=== PATIENT | female | born 1975 | race Caucasian/White ===

== ENCOUNTER 2021-08-05 19:44 | Emergency (ER) | payer OTHER ==
[~2021-08-05] VITALS: Ht 162.6 cm; Wt 96.7 kg
--- NOTE | 2021-08-05 19:58 | PHYS DOC ---
Adult General Chief Complaint Chief Complaint: EYE PROBLEMS HPI HPI Patient is a 45-year-old female patient presented to the ED today with left eye injury, patient states she was playing with her dog and it accidentally scratched her left eye. Patient states the dog is up-to-date with his shots. Denies vision loss, reports blurry vision. (TASNEEM HERNANDEZ APRN) Review of Systems Review of Systems Constitutional: Denies fever or chills [] Eyes: Reports left eye injury, blurry vision, denies vision loss Musculoskeletal: Denies back pain or joint pain [] Integument: Denies rash or skin lesions [] Neurologic: Denies headache, focal weakness or sensory changes [] All other systems were reviewed and found to be within normal limits, except as documented in this note. (TASNEEM HERNANDEZ APRN) Physical Exam Physical Exam Constitutional: Well developed, well nourished, no acute distress, non-toxic appearance. [] HENT: Normocephalic, atraumatic, bilateral external ears normal, oropharynx moist, no oral exudates, nose normal. [] Eyes: PERRLA, EOMI, conjunctiva normal, no discharge. [] Left lower eyelid lateral aspect with a tiny superficial laceration roughly 0.3 cm. Left eye exam under Santos lamp A tiny corneal abrasion noted at approximately 2100 position Left eye was numbed with tetracaine and stained with fluorescein. Back: No tenderness, no CVA tenderness. [] Extremities: No tenderness, no cyanosis, no clubbing, ROM intact, no edema. [] Neurologic: Alert and oriented X 3, normal motor function, normal sensory function, no focal deficits noted. [] Psychologic: Affect normal, judgement normal, mood normal. [] (TASNEEM HERNANDEZ PATENT LITIGATION ASSOCIATE) EKG EKG [] (TASNEEM HERNANDEZ APRN) Radiology/Procedures Radiology/Procedures [] (TASNEEM HERNANDEZ APRN) Heart Score C/O Chest Pain: N/A Risk Factors: Risk Factors: DM, Current or recent (<one month) smoker, HTN, HLP, family history of CAD, obesity. Risk Scores: Risk Factors: DM, Current or recent (<one month) smoker, HTN, HLP, family history of CAD, obesity. (TASNEEM HERNANDEZ PATENT LITIGATION ASSOCIATE) Course & Med Decision Making Course & Med Decision Making Pertinent Labs and Imaging studies reviewed. (See chart for details) This a 45-year-old female patient presented to the ED today with left eye injury, patient was playing with her dog and it scratched her left eye. Noted for corneal abrasion as well as left lower eyelid tiny laceration. Tetanus was updated in the ED. Discharged with erythromycin and Augmentin. Provided instructions to follow-up with an eye doctor. Visual acuity documented in the nursing note (TASNEEM HERNANDEZ APRN) Course & Med Decision Making I was the Attending physician on the above date of service of this patient. This patient was evaluated, examined, treated, and dispositioned from the emergency department by the mid-level practitioner. Although I was working at the time , no assistance was requested. Electronically signed, Tamara Paul DO (TAMARA PAUL DO) [employer] Disclaimer Dragon Disclaimer This electronic medical record was generated, in whole or in part, using a voice recognition dictation system. (TASNEEM HERNANDEZ APRN) Departure Departure: Impression: Primary Impression: Eyelid laceration, left Additional Impression: Dog scratch Disposition: HOME / SELF CARE / HOMELESS Condition: STABLE Referrals: BONNIE STOUT (PCP) follow up with internal revenue agent in 1-2 Patient Instructions: Eye - Corneal Abrasion, [id number] Additional Instructions: You were evaluated in the emergency room and noted to have a corneal abrasion as well as left lower eyelid laceration. Keep the areas clean and dry. Please follow-up with your internal revenue agent in 1 week. Use the prescribed medication as ordered Scripts Tobramycin Ophth (TOBRAMYCIN OPHTH DROPS) 5 Ml Drops 1 DROP OS QID for 7 Days, #5 ML 0 Refills Prov: TASNEEM HERNANDEZ APRN 08/05/21 Amoxicillin/Potassium Clav (AUGMENTIN 875-125 TABLET) 1 Each Tablet 1 TAB PO BID for 10 Days, #20 TAB 0 Refills Prov: TASNEEM HERNANDEZ APRN 08/05/21 Problem Qualifiers Primary Impression: Eyelid laceration, left Encounter type: initial encounter Qualified Codes: S01.112A - Laceration without foreign body of left eyelid and periocular area, initial encounter TASNEEM HERNANDEZ APRN Aug 05, 2021 19:58 TAMARA PAUL DO Aug 07, 2021 06:21
[2021-08-05] MEDS ORDERED: DIPH,PERTUSS(ACELL),TET VAC/PF 0.5 ML SYRINGE. VAX IM ONE (20:00)
[2021-08-05] MEDS ORDERED: FLUORESCEIN 1MG EYE STRIP. OS ONE (20:00)
[2021-08-05] MEDS ORDERED: TETRACAINE 0.5% OPHTH SOLUTION 4ML BOTTLE. OS ONE (20:00)
[2021-08-05] MEDS ORDERED: AMOX1TAB61 PO (20:23)
[2021-08-05] MEDS ORDERED: TOBR5DRO6 OS (20:23)
[2021-08-05 20:30] VITALS: BP 115/66
== END 2021-08-05 20:36 | disposition home or self-care (01) ==
LOC: ER 19:44
DX: S01.112A Laceration without foreign body of left eyelid and periocular area, initial encounter (principal); W54.0XXA Bitten by dog, initial encounter; Y93.89 Activity, other specified; Y92.89 Other specified places as the place of occurrence of the external cause; Y99.8 Other external cause status
CPT/HCPCS: 90471; 90715; 99283-25

== ENCOUNTER → 2021-11-17 | Outpatient (CLI) | payer OTHER ==
[~2021-11-17] MED LIST: AMOX1TAB61 PO; TOBR5DRO6 OS
--- NOTE | 2021-11-17 09:27 | RAD ---
CT MAXILLOFACIAL WITHOUT CONTRAST dated 11/17/2021 8:14 AM Indication:Reason: Chronic sinusitis, congestion, drainage, headache. / Spl. Instructions: / History : Comparison: No comparison is available. Technique: Helical noncontrast images were performed. Sagittal and coronal reconstructions were obtai martin. One or more of the following individualized dose reduction techniques were utilized for this examinat ion: 1. Automated exposure control 2. Adjustment of the mA and/or kV according to patient size 3. Use of iterative reconstruction technique Findings: The paranasal sinuses are normally pneumatized and appear clear, showing no mucosal thickening or flu id. The nasal septum is deviated somewhat to the left and there is pneumatization of the right middle turbinate. There is a high density oval structure seen on the left lateral to the maxillary teeth. T his may be a foreign body such as chewing gum or tobacco pledget. Mastoid air cells appear clear. IMPRESSION: No current evidence of sinusitis. Electronically signed by: Gerardo Clark Jr., MD (11/17/2021 9:25 AM) [facility]
== END ==
LOC: CT 08:12
PROVIDERS: ATTEND Family Medicine
DX: J34.2 Deviated nasal septum (principal); J32.9 Chronic sinusitis, unspecified; R09.81 Nasal congestion; R51.9 Headache, unspecified
CPT/HCPCS: 70486